=== PATIENT | female | born 1985 | race Caucasian/White ===

== ENCOUNTER 2021-05-30 19:35 | Emergency (ER) | payer OTHER ==
[2021-05-31 01:58] LABS: HEMOGLOBIN 12.3 gm/dl (12.3-15.3); RED BLOOD COUNT 4.09 M/UL (4.00-5.10); WHITE BLOOD COUNT 8.5 K/UL (4.5-11.0)
[2021-05-31 02:17] LABS: BUN/CREATININE RATIO 13 (0-10)
[2021-05-31] MEDS ORDERED: PYRIDIUM200 MG PO (03:22)
[2021-05-31] MEDS ORDERED: NAPROSYN500 MG PO (03:22)
[2021-05-31] MEDS ORDERED: CEFUROXIME500 MG PO (03:22)
[2021-05-31] MEDS ORDERED: ONDANSETRON ODT4 MG SL (03:22)
== END 2021-05-31 03:50 | disposition home or self-care (01) ==
LOC: ER1 19:35
PROVIDERS: Physician Assistant
DX: N83.202 Unspecified ovarian cyst, left side (principal); N30.00 Acute cystitis without hematuria; G43.909 Migraine, unspecified, not intractable, without status migrainosus; Z88.0 Allergy status to penicillin; F17.290 Nicotine dependence, other tobacco product, uncomplicated
CPT/HCPCS: 80053; 81001; 83690; 84703; 85025; 87086; 96374; 96375; 99284; J1885; J2405; J7030; Q9967